=== PATIENT | male | born 1940 | race Caucasian/White ===

== ENCOUNTER 2016-04-04 08:52 | Inpatient (IN) | payer BC ==
[~2016-04-04] VITALS: Ht 175.3 cm; Wt 81.6 kg
[~2016-04-04 08:52] MED LIST: ASPI81TA2 PO; BP MED; HIGH CHOLESTEROL MED
[2016-04-04 08:56] VITALS: BP 153/90; PULSE 105; RESP 16; TEMP 98.2; O2SAT 99
--- NOTE | 2016-04-04 09:00 | NUR ---
AMBULATED TO BED 6
--- NOTE | 2016-04-04 09:05 | NUR ---
ER at bedside examining patient.
--- NOTE | 2016-04-04 09:10 | NUR ---
Pt presents to ED c/o difficulty swallowing food or water. Pt denies vomiting or nausea. Pt reports food/water passing esphogeal sphincter after several attempts. Pt h/o GERD,HTN, and hyperlipidemia.Pt has no acute distress noted at this time.
[2016-04-04] MEDS ORDERED: FAMOTIDINE PF 20 MG/2 ML VIAL IVP ONE (09:45)
[2016-04-04] MEDS ORDERED: NACL 0.9% 1,000 ML IV ONE (09:45)
[2016-04-04 09:49] LABS: BASOPHILS % (AUTO) 0.3 % (0.0-2.0); EOSINOPHILS % (AUTO) 0.4 % (0.0-4.0); HEMATOCRIT 47.5 % (36-54); HEMOGLOBIN 15.8 g/dL (14.0-18.0); LYMPHOCYTES # (AUTO) 0.7 K/uL (1.0-5.5); LYMPHOCYTES % (AUTO) 9.7 % (20.5-51.5); MEAN CORPUSCULAR HEMOGLOBIN 31 pg (27-31); MEAN CORPUSCULAR HGB CONC 33 % (32-36); MEAN CORPUSCULAR VOLUME 92 fL (79.0-98.0); MONOCYTES # (AUTO) 0.3 K/uL (0.0-1.0); MONOCYTES % (AUTO) 3.6 % (1.7-9.3); NEUTROPHILS # (AUTO) 6.7 K/uL (1.8-7.7); PLATELET COUNT (AUTO) 222 K/uL (130-430); RED BLOOD CELL COUNT(AUTO) 5.17 MIL/uL (4.2-6.2); RED CELL DISTRIBUTION WIDTH 11.8 % (9.0-15.0); WHITE BLOOD COUNT (AUTO) 7.7 K/uL (4.8-10.8)
[2016-04-04 10:00] LABS: PROTHROMBIN TIME 10.8 SECS (9.5-12.5)
[2016-04-04 10:04] LABS: ANION GAP 10 (5-15); CALCIUM 9.4 mg/dL (8.4-11.0); CHLORIDE 100 mmol/L (98-107); CREATININE 1.18 mg/dL (0.55-1.30); GLUCOSE 142 mg/dL (70-99); POTASSIUM 3.7 mmol/L (3.5-5.1); SODIUM SERUM 137 mmol/L (136-145); UREA NITROGEN, BLOOD 10 mg/dL (8-21)
[2016-04-04 10:09] LABS: ALANINE AMINOTRANSFERASE 26 U/L (12-78); ALBUMIN 4.4 g/dL (3.4-4.8); ASPARTATE AMINOTRANSFERASE 20 U/L (10-37); TOTAL PROTEIN, SERUM 8.8 g/dL (6.4-8.3)
--- NOTE | 2016-04-04 10:30 | NUR ---
PT RESTING NO ACUTE DISTRESS NOTED.
[2016-04-04] MEDS ORDERED: LOVA20TA2 PO (10:39)
[2016-04-04] MEDS ORDERED: OMEP40CA33 PO (10:39)
[2016-04-04] MEDS ORDERED: AMLO2.5T2 PO (10:41)
[2016-04-04] MEDS ORDERED: LOSA25TA3 PO (10:41)
[2016-04-04] MEDS ORDERED: ONDANSETRON HCL 4 MG/2 ML VIAL IVP PRN (12:00)
[2016-04-04] MEDS ORDERED: MORPHINE 2 MG/ML INJ. SYRINGE IVP PRN (12:00)
[2016-04-04] MEDS ORDERED: ACETAMINOPHEN 325 MG TABLET PO PRN (12:00)
--- NOTE | 2016-04-04 12:30 | NUR ---
Patient will be admitted to care of . Admitted to MED/SURG unit. Will go to room 107B. Belongings list completed. Summary report printed. Report given to ADMISSION RN.
--- NOTE | 2016-04-04 13:30 | NUR ---
ADMISSION: The patient, RO BELLA, 76 y/o, M admitted by DELGADO ACEVES MD, was given written information regarding hospital policies, unit procedures and contact persons. Pt A/Ox4, denies pain at this time...HL to RFA flushes well...Will review and carry out orders....Family at bedside...will cont to monitor.
[2016-04-04] MEDS ORDERED: PANTOPRAZOLE SODIUM 40 MG/VIAL (PROTONIX) IVP ONE (13:45)
--- NOTE | 2016-04-04 13:59 | NUR ---
GI CONSULT Spoke with Harika regarding request for consultation with Dr. Fenton ([phone]) for reason: dysphagia.
[2016-04-04 14:59] VITALS: BP 151/75; RESP 18; TEMP 97; O2SAT 97
--- NOTE | 2016-04-04 15:00 | NUR ---
DR CHANG AT BEDSIDE DISCUSSING PLAN WITH BOTH PT AND FAMILY
[2016-04-04] MEDS: D5NS 1,000 ML IV SCH (15:11)
[2016-04-04] MEDS: LOVASTATIN 20 MG TABLET PO SCH (18:00)
--- NOTE | 2016-04-04 18:09 | NUR ---
1800 PO PILL HELD PT UNABLE TO SWALLOW
--- NOTE | 2016-04-04 18:47 | NUR ---
PT STABLE SITTING UP IN BED VISITING WITH FAMILY....WILL CONT TO DANNY
[2016-04-04 19:30] VITALS: BP 140/75; PULSE 67; RESP 16; TEMP 98.2; O2SAT 97
--- NOTE | 2016-04-04 19:30 | NUR ---
NOTES RECEIVED THE PT FROM THE DAY NURSE,PT A/A/OX4 FAMILY ARE AT THE BEDSIDE.PT DENIES PAIN AT THIS TIME .CALL LIGHT WITHIN REACH,SAFETY MEASURES IN PROGRESS.CONTINUE TO MONITOR.
[2016-04-04] MEDS: PANTOPRAZOLE SODIUM 40 MG/VIAL (PROTONIX) IVP SCH (22:02)
--- NOTE | 2016-04-04 22:04 | NUR ---
notes pt c/o acid and pain to his abdomen ,pt upset because he has been waiting for an hour to receive the medication,RN was notified and stated he is too busy,another RN was notified and medicated the pt.
--- NOTE | 2016-04-04 23:22 | NUR ---
notes pt feeling better,call light within reach.continue to monitor.
[2016-04-04 23:50] VITALS: BP 142/78; PULSE 59; RESP 18; TEMP 97.4; O2SAT 96
[2016-04-05] MEDS: D5NS 1,000 ML IV SCH ×2 (00:20→12:05)
--- NOTE | 2016-04-05 01:13 | NUR ---
notes pt sleeping,no distress noted.call light within reach.continue to monitor.
--- NOTE | 2016-04-05 03:20 | NUR ---
notes pt sleeping,call light within reach,continue to monitor.
[2016-04-05 03:49] VITALS: BP 133/75; PULSE 61; RESP 18; TEMP 98.3; O2SAT 96
--- NOTE | 2016-04-05 05:20 | NUR ---
notes pt remains asleep,call light within reach.continue to monitor.
--- NOTE | 2016-04-05 06:00 | NUR ---
closing notes pt resting with no complaints.will endorse the care of the pt to the day nurse.
--- NOTE | 2016-04-05 06:35 | NUR ---
AM ROUNDS Pt sleeping, easily wakes..A/O x4. pt NPO for procedure today. IVF infusing well to RFA...Pt ambulates ad amberly w/steady gait...Call light/phone w/in reach...Will cont to monitor
--- NOTE | 2016-04-05 07:47 | NUR ---
PATIENT RESTING: Patient resting quietly. No acute distress noted. Vital signs within normal range. Son at bedside
[2016-04-05 08:17] VITALS: BP 141/72; PULSE 66; RESP 20; TEMP 98.6; O2SAT 94
[2016-04-05] MEDS: PANTOPRAZOLE SODIUM 40 MG/VIAL (PROTONIX) IVP SCH ×2 (08:38→21:37)
[2016-04-05] MEDS: amLODIPine BESYLATE 5 MG TABLET PO SCH (09:00)
[2016-04-05] MEDS: LOSARTAN POTASSIUM 25 MG TABLET PO SCH (09:00)
--- NOTE | 2016-04-05 09:37 | NUR ---
Nutrition Update Jose Scale 18 noted. Pt admitted for dysphagia. Diet: NPO BMI: 26.6 kg/m2 RD to follow per nutrition care standards.
--- NOTE | 2016-04-05 10:22 | NUR ---
RESTING PT STABLE..RESTING...COMFORTABLE..DENIES PAIN AT THIS TIME...INFORMED BOTH PT AND HIS TWO SONS WHO ARE AT BEDSIDE THAT EGD WILL BE DONE TODAY AROUND [id number]..ALL UNDERSTOOD
[2016-04-05 11:30] VITALS: BP 144/69; PULSE 65; RESP 16; TEMP 98.7; O2SAT 97
--- NOTE | 2016-04-05 11:45 | NUR ---
PT AMBULATING IN ROOM WITH STEADY GAIT...AWAITING EGD TODAY
[2016-04-05] MEDS ORDERED: SIMETHICONE 40 MG/0.6 ML ML ONE (12:33)
[2016-04-05] MEDS ORDERED: MEPERIDINE HCL/PF 100 MG/ML AMP ONE (12:34)
[2016-04-05] MEDS: MIDAZOLAM HCL 5 MG/5 ML VIAL ONE ×4 (13:43→14:00)
--- NOTE | 2016-04-05 14:27 | NUR ---
PT STILL IN GI LAB
[2016-04-05] MEDS ORDERED: VANCOMYCIN HCL 1 GM/NS PREMIX 250 ML IV ONE (15:00)
--- NOTE | 2016-04-05 15:00 | NUR ---
BACK IN ROOM FROM GI LAB PT AWAKE, ALERT, DENIES PAIN OR DISCOMFORT AT THIS TIME...FAMILY AT BEDSIDE...WILL CONT TO PRAKASH
--- NOTE | 2016-04-05 15:21 | NUR ---
CONSULT ID POSITIVE BLOOD CULTURE DR SOSA [phone] S/W [facility] OFFICE @ [id number]
[2016-04-05 15:36] VITALS: BP 105/61; PULSE 64; RESP 19; TEMP 96.9; O2SAT 97
--- NOTE | 2016-04-05 17:34 | NUR ---
DR PAREDES DID NOT CLEAR PT FOR DISCHARGE HOME.. POSSIBLE DISCHARGE HOME TOMORROW
[2016-04-05] MEDS ORDERED: VANCOMYCIN HCL 1,000 MG in NS 250 ML IV ONE (18:30)
[2016-04-05 20:00] VITALS: BP 144/77; PULSE 66; RESP 16; TEMP 96.8; O2SAT 96
--- NOTE | 2016-04-05 20:00 | NUR ---
OPENING NOTE RECEIVED PATIENT AWAKE SITTING UP IN BED. VISITORS AT BEDSIDE. A/OX4. NO S/S DISTRESS. IV TO RIGHT AC WITH D5NS@100ML/H. PT NOT HAVING ANY DIFFICULTY SWALLOWING. POC DISCUSSED WITH PT. COMM BOARD UPDATED. CALL LIGHT AT SIDE. BED IS LOW AND LOCKED. SIDE RAILS UP X2.
[2016-04-05] MEDS: LOVASTATIN 20 MG TABLET PO SCH (21:38)
--- NOTE | 2016-04-05 22:30 | NUR ---
rounds pt awake watching tv. no c/o pain. pt tolerating fluids. will continue to monitor.
[2016-04-06 00:10] VITALS: BP 136/70; PULSE 70; RESP 18; TEMP 98.5; O2SAT 97
--- NOTE | 2016-04-06 01:41 | NUR ---
rounds pt appears to be sleeping. respirations even and unlabored. safety precautions in place.
[2016-04-06 04:11] VITALS: BP 130/78; PULSE 68; RESP 18; TEMP 98.6; O2SAT 98
[2016-04-06] MEDS: D5NS 1,000 ML IV SCH (04:15)
[2016-04-06] MEDS ORDERED: VANCOMYCIN HCL 750 MG in NS 250 ML IV SCH (06:00)
[2016-04-06 07:00] VITALS: BP 135/78; PULSE 74; RESP 18; TEMP 97.9; O2SAT 97
[2016-04-06] MEDS: LOSARTAN POTASSIUM 25 MG TABLET PO SCH (09:17)
[2016-04-06] MEDS: amLODIPine BESYLATE 5 MG TABLET PO SCH (09:18)
[2016-04-06] MEDS: PANTOPRAZOLE SODIUM 40 MG/VIAL (PROTONIX) IVP SCH (09:19)
--- NOTE | 2016-04-06 10:50 | NUR ---
HCP/PA: Sun Yusuf made her aware of discharge
[2016-04-06 11:35] VITALS: BP 140/79; PULSE 79; RESP 18; TEMP 98.2; O2SAT 97
[2016-04-06 12:26] VITALS: Ht 175.3 cm; Wt 81.6 kg
--- NOTE | 2016-04-06 12:30 | NUR ---
pt for d/c and instructions given and understood.iv dcd and taken out accompanied family member
[2016-04-06 12:41] VITALS: BP 145/76; PULSE 61; RESP 17; TEMP 98.7; O2SAT 97
--- NOTE | 2016-04-11 10:18 | NUR ---
Discharge Follow Up Phone Call Medical Coding Auditor phoned patient, , on 04/07/16, 04/10/16 and 04/11/16 and left voicemail messages with offer of assistance and Social Service contact information. No further calls will be attempted.
== END 2016-04-06 12:30 | disposition home or self-care (01) | DRG 392 ==
LOC: SED 08:52 → SMU 11:44
PROVIDERS: ADMIT Internal Medicine Hospice and Palliative Medicine; ATTEND Internal Medicine Hospice and Palliative Medicine
PROC: 0DB58ZX Excision of Esophagus, Via Natural or Artificial Opening Endoscopic, Diagnostic (ICD-10-PCS; principal; 2016-04-05 13:00)
PROC: 0D758ZZ Dilation of Esophagus, Via Natural or Artificial Opening Endoscopic (ICD-10-PCS; 2016-04-05 13:00)
DX: K22.2 Esophageal obstruction (principal); I10 Essential (primary) hypertension; K21.9 Gastro-esophageal reflux disease without esophagitis; K44.9 Diaphragmatic hernia without obstruction or gangrene; Z96.659 Presence of unspecified artificial knee joint; M19.90 Unspecified osteoarthritis, unspecified site; Z88.1 Allergy status to other antibiotic agents; Z79.82 Long term (current) use of aspirin; Z79.899 Other long term (current) drug therapy
CPT/HCPCS: 36415; 43239; 71010; 80053; 83605; 84484; 85025; 85610-TC; 85730-TC; 87040-TC; 88305; 88313; 93005; 96361; 96374; 99285; C9113; J2175; J2250; J3370; J3490; J7030; J7042; J7050

== ENCOUNTER 2019-11-27 16:15 | Emergency (ER) | payer BC ==
[~2019-11-27] VITALS: Ht 175.3 cm; Wt 88.0 kg
[~2019-11-27 16:15] MED LIST changes: +AMLO2.5T2 PO; -ASPI81TA2 PO; +LOSA25TA3 PO; +LOVA20TA2 PO; +OMEP40CA13 PO
--- NOTE | 2019-11-27 16:39 | NUR ---
Patient to ER bed 3 to gown for evaluation. Side rails up. Report given to Kassi KEITH.
--- NOTE | 2019-11-27 16:42 | NUR ---
ER Dr. Mtz at bedside examining patient.
--- NOTE | 2019-11-27 16:55 | NUR ---
PT to Radiology with staff via [facility].
--- NOTE | 2019-11-27 17:04 | NUR ---
Pt to ER bed 3 via [facility]
[2019-11-27 17:55] VITALS: BP_SYST 148
--- NOTE | 2019-11-27 17:55 | NUR ---
Patient given written and verbal discharge instructions and verbalizes understanding. ER MD discussed with patient the results and treatment provided. Patient in stable condition. ID arm band removed. NO Rx given. Patient educated on pain management and to follow up with PMD. Pain Scale 0/10. Opportunity for questions provided and answered. Medication side effect fact sheet provided.
== END 2019-11-27 17:55 | disposition home or self-care (01) ==
LOC: SED 16:15
DX: S05.11XA Contusion of eyeball and orbital tissues, right eye, initial encounter (principal); I10 Essential (primary) hypertension; Z88.0 Allergy status to penicillin; Z79.899 Other long term (current) drug therapy; W01.0XXA Fall on same level from slipping, tripping and stumbling without subsequent striking against object, initial encounter; Y93.89 Activity, other specified; Y92.89 Other specified places as the place of occurrence of the external cause; Y99.8 Other external cause status
CPT/HCPCS: 70450-TC; 70486-TC; 99285